=== PATIENT | male | born 1990 | race Hispanic/Latino ===

== ENCOUNTER 2024-05-24 01:57 | Emergency (ER) | payer OTHER ==
[~2024-05-24] VITALS: Ht 170.2 cm; Wt 79.4 kg
[2024-05-24 02:16] VITALS: PULSE 96; RESP 24; TEMP 98.3; O2SAT 99
[2024-05-24] MEDS: LIDOCAINE HCL 1% LOCAL INJ 20 ML VIAL INJ STA (02:28)
[2024-05-24] MEDS: TETANUS/DIPHTHERIA TOX ADULT 0.5 ML SYR IM STA (02:30)
[2024-05-24] MEDS ORDERED: BACITRACIN ZINC 0.9GM TP ONE (02:39)
[2024-05-24] MEDS ORDERED: CEPHALEXIN500 MG PO (02:40)
[2024-05-24] MEDS: BACITRACIN ZINC 15 GM OINT TOP STA (02:42)
== END 2024-05-24 03:19 | disposition home or self-care (01) ==
LOC: ER 02:05
DX: S61.212A Laceration without foreign body of right middle finger without damage to nail, initial encounter (principal); W26.8XXA Contact with other sharp object(s), not elsewhere classified, initial encounter; Y93.39 Activity, other involving climbing, rappelling and jumping off; Y99.0 Civilian activity done for income or pay
CPT/HCPCS: 12001; 73130; 90471; 90714; 99283; J2003